=== PATIENT | male | born 1960 | race Caucasian/White ===

== ENCOUNTER 2020-05-25 14:52 | Emergency (ER) | payer OTHER ==
[~2020-05-25] VITALS: Ht 180.3 cm; Wt 99.8 kg
[~2020-05-25 14:52] MED LIST: ATOR20; CIPR500 PO; Flonase 0.05% N16 GM; HYDACE5 PO; LOSHYD100; Naprosyn500 MG PO; Norco 5-325 Ta1 EACH PO; PROM25 PO
[2020-05-25] MEDS ORDERED: AMLODIPINE BESYL5 MG PO (16:53)
[2020-05-25] MEDS ORDERED: LOSA50 PO (16:54)
[2020-05-25] MEDS ORDERED: HYDCHL25 PO (16:54)
[2020-05-25] MEDS ORDERED: Pravachol40 MG PO (16:55)
[2020-05-25] MEDS ORDERED: CELE400 PO (18:02)
[2020-05-25] MEDS ORDERED: Norco 5-325 Ta1 EACH PO (18:02)
[2020-05-25] MEDS ORDERED: METPRE4DP PO (18:02)
== END 2020-05-25 18:33 | disposition home or self-care (01) ==
LOC: ER 14:52
DX: M54.16 Radiculopathy, lumbar region (principal); I10 Essential (primary) hypertension; Z79.899 Other long term (current) drug therapy
CPT/HCPCS: 72100; 99283-25

== ENCOUNTER → 2022-01-30 | Outpatient (CLI) | payer OTHER ==
[~2022-01-30] MED LIST changes: +AMLODIPINE BESYL5 MG PO; +BACTRIM DS TAB1 EAC1 PO; +CELE400 PO; +CEPH500 PO; +HYDCHL25 PO; +LOSA50 PO; +METPRE4DP PO; +Pravachol40 MG PO
[2022-01-30 07:43] LABS: BASOPHILS ABSOLUTE AUTO 0.04 K/mm3 (0.00-0.23); BASOPHILS PERCENT AUTO 0 % (0-2); EOSINOPHILS ABSOLUTE AUTO 0.24 K/mm3 (0.00-0.68); EOSINOPHILS PERCENT AUTO 2 % (0-6); Hematocrit 50.5 % (37.0-53.0); IMMATURE GRAN ABSOLUTE AUTO 0.04 K/mm3 (0.00-0.10); IMMATURE GRAN PERCENT AUTO 0 % (0-1); LYMPHOCYTES ABSOLUTE AUTO 1.82 K/mm3 (0.84-5.20); LYMPHOCYTES PERCENT AUTO 14 % (21-46); MONOCYTES ABSOLUTE AUTO 1.09 K/mm3 (0.16-1.47); MONOCYTES PERCENT AUTO 8 % (4-13); Mean Corpuscular HGB 31.7 pg (26.0-34.0); Mean Corpuscular HGB Conc 33.7 g/dL (31.5-36.5); Mean Corpuscular Volume 94 fL (80-100); Mean Platelet Volume 10.8 fL (9.1-12.4); NEUTROPHILS ABSOLUTE AUTO 9.96 K/mm3 (1.96-9.15); NEUTROPHILS PERCENT AUTO 76 % (41-73); Platelet Count 205 K/mm3 (150-400); RDW Coefficient Variation 13.2 % (11.7-14.2); RDW Standard Deviation 45.3 fL (35.1-46.3); Red Blood Cell Count 5.37 M/mm3 (4.30-5.90); White Blood Cell Count 13.19 K/mm3 (4.00-11.30)
[2022-01-30 08:40] LABS: Anion Gap 8 mmol/L (6-16); Blood Urea Nitrogen 18 mg/dL (8-24); Bun/Creatinine Ratio 15.4 (12.0-20.0); CO2, Blood 30 mmol/L (21-32); Calcium, Blood 9.2 mg/dL (8.5-10.1); Chloride, Blood 103 mmol/L (98-108); Creatinine, Blood 1.17 mg/dL (0.60-1.20); Glomerular Filtration Rate >60 (60-); Glucose, Blood 116 mg/dL (70-99); Potassium, Blood 4.1 mmol/L (3.5-5.5); Sodium, Blood 141 mmol/L (136-145); Uric Acid, Blood 5.4 mg/dL (3.5-7.2)
== END | disposition home or self-care (01) ==
LOC: LAB SHORT 07:38 → LAB 07:38
PROVIDERS: Chiropractor
DX: M70.41 Prepatellar bursitis, right knee (principal)
CPT/HCPCS: 80048; 84550; 85025

== ENCOUNTER 2022-02-02 06:53 | Inpatient (IN) | payer OTHER ==
[~2022-02-02] VITALS: Ht 180.3 cm; Wt 99.0 kg
[~2022-02-02 06:53] MED LIST changes: -BACTRIM DS TAB1 EAC1 PO; -CEPH500 PO
[2022-02-02] MEDS ORDERED: AMLODIPINE BESYL5 MG PO (07:11)
[2022-02-02 09:47] LABS: BASOPHILS ABSOLUTE AUTO 0.03 K/mm3 (0.00-0.23); BASOPHILS PERCENT AUTO 0 % (0-2); EOSINOPHILS ABSOLUTE AUTO 0.21 K/mm3 (0.00-0.68); EOSINOPHILS PERCENT AUTO 2 % (0-6); Hematocrit 52.2 % (37.0-53.0); Hemoglobin 17.9 g/dL (13.5-17.5); IMMATURE GRAN ABSOLUTE AUTO 0.02 K/mm3 (0.00-0.10); IMMATURE GRAN PERCENT AUTO 0 % (0-1); LYMPHOCYTES PERCENT AUTO 12 % (21-46); MONOCYTES ABSOLUTE AUTO 1.09 K/mm3 (0.16-1.47); MONOCYTES PERCENT AUTO 10 % (4-13); Mean Corpuscular HGB 31.5 pg (26.0-34.0); Mean Corpuscular HGB Conc 34.3 g/dL (31.5-36.5); Mean Corpuscular Volume 92 fL (80-100); NEUTROPHILS ABSOLUTE AUTO 8.25 K/mm3 (1.96-9.15); NEUTROPHILS PERCENT AUTO 76 % (41-73); Platelet Count 257 K/mm3 (150-400); RDW Coefficient Variation 12.6 % (11.7-14.2); RDW Standard Deviation 42.7 fL (35.1-46.3); Red Blood Cell Count 5.68 M/mm3 (4.30-5.90)
[2022-02-02 10:11] LABS: Alanine Aminotransfer (ALT/SGP 45 U/L (12-78); Albumin, Blood 3.7 g/dL (3.4-5.0); Albumin/Globulin Ratio 0.8 (0.8-1.8); Alk Phos 93 U/L (50-136); Anion Gap 7 mmol/L (6-16); Aspartate Aminotrans (AST/SGOT 29 U/L (12-37); Blood Urea Nitrogen 23 mg/dL (8-24); Bun/Creatinine Ratio 19.2 (12.0-20.0); CO2, Blood 27 mmol/L (21-32); Calcium, Blood 9.3 mg/dL (8.5-10.1); Chloride, Blood 102 mmol/L (98-108); Globulin, Blood 4.6 g/dL (2.2-4.0); Glomerular Filtration Rate >60 (60-); Glucose, Blood 98 mg/dL (70-99); Potassium, Blood 3.8 mmol/L (3.5-5.5); Sodium, Blood 136 mmol/L (136-145); Total Protein, Blood 8.3 g/dL (6.4-8.2)
[2022-02-02] MEDS ORDERED: CEPH500 PO (14:49)
[2022-02-02] MEDS ORDERED: BACTRIM DS TAB1 EAC1 PO (14:50)
--- NOTE | 2022-02-02 17:26 | NUR ---
PT ADMITTED FOR SEPTIC KNEE AT 1400. Pt AOx4, ambulates independently, supervision for safety. Right knee, red/warm to the touch, fluid aspirated in the ER. Ortho Surgeon assessed pt at bedside, the plan is for a procedure tomorrow to washout knee, orders for NPO at midnight, NS IV 125ml/hr. Vitals stable, PRN dilaudid given for pain.
--- NOTE | 2022-02-03 00:31 | NUR ---
NPO FOR AM PROCEDURE PER MD ORDERS. IVF INFUSING. COVID SWAB DONE AND SENT TO LAB FOR PROCESSING. CALL LIGHT IN REACH.
[2022-02-03 01:14] LABS: Influenza A, PCR NEGATIVE (NEGATIVE); Influenza B, PCR NEGATIVE (NEGATIVE); Resp Syncytial Virus, PCR NEGATIVE (NEGATIVE)
[2022-02-03 01:17] LABS: SARS-Cov-2 (COVID-19) PCR, MMC POSITIVE (NEGATIVE)
--- NOTE | 2022-02-03 01:25 | NUR ---
LAB CALLED RESULTS OF COVID TEST - POSITIVE. PLACED ON DROPLET PRECAUTIONS PER PROTOCOL. CHARGE NURSE NOTIFIED
--- NOTE | 2022-02-03 03:11 | NUR ---
RECEIVING WORKER SUMMARY WAS ADMITTED TO FLOOR YESTERDAY WITH RIGHT KNEE SWELLING AND PAIN. X RAY OF AREA SUGGESTED POSSIBLE CELLULITIS. STARTED ON ANTIBIOTICS AND SCHEDULED FOR PROCEDURE LATER TODAY. NPO SINCE MIDNIGHT. PRE PROCEDURE COVID TEST DONE AND CAME BACK POSITIVE. PLACED ON PRECAUTIONS. CURRENTLY RESTING QUIETLY WITH CALL LIGHT IN REACH.
[2022-02-03 04:36] LABS: BASOPHILS ABSOLUTE AUTO 0.03 K/mm3 (0.00-0.23); BASOPHILS PERCENT AUTO 0 % (0-2); EOSINOPHILS ABSOLUTE AUTO 0.33 K/mm3 (0.00-0.68); EOSINOPHILS PERCENT AUTO 3 % (0-6); Hematocrit 47.5 % (37.0-53.0); Hemoglobin 16.2 g/dL (13.5-17.5); IMMATURE GRAN ABSOLUTE AUTO 0.05 K/mm3 (0.00-0.10); IMMATURE GRAN PERCENT AUTO 1 % (0-1); LYMPHOCYTES ABSOLUTE AUTO 1.64 K/mm3 (0.84-5.20); LYMPHOCYTES PERCENT AUTO 17 % (21-46); MONOCYTES ABSOLUTE AUTO 1.12 K/mm3 (0.16-1.47); MONOCYTES PERCENT AUTO 12 % (4-13); Mean Corpuscular HGB 31.3 pg (26.0-34.0); Mean Corpuscular HGB Conc 34.1 g/dL (31.5-36.5); Mean Corpuscular Volume 92 fL (80-100); Mean Platelet Volume 11.2 fL (9.1-12.4); NEUTROPHILS ABSOLUTE AUTO 6.61 K/mm3 (1.96-9.15); NEUTROPHILS PERCENT AUTO 68 % (41-73); Platelet Count 265 K/mm3 (150-400); RDW Coefficient Variation 12.6 % (11.7-14.2); Red Blood Cell Count 5.17 M/mm3 (4.30-5.90); White Blood Cell Count 9.78 K/mm3 (4.00-11.30)
[2022-02-03 05:03] LABS: Anion Gap 4 mmol/L (6-16); Blood Urea Nitrogen 21 mg/dL (8-24); Bun/Creatinine Ratio 17.9 (12.0-20.0); CO2, Blood 29 mmol/L (21-32); Calcium, Blood 9.1 mg/dL (8.5-10.1); Chloride, Blood 102 mmol/L (98-108); Creatinine, Blood 1.17 mg/dL (0.60-1.20); Glomerular Filtration Rate >60 (60-); Glucose, Blood 105 mg/dL (70-99); Potassium, Blood 3.9 mmol/L (3.5-5.5); Sodium, Blood 135 mmol/L (136-145)
--- NOTE | 2022-02-03 09:24 | NUR ---
02/03/22 0924 Deshawn Cosme PT ON SCHEDULED ABX
--- NOTE | 2022-02-03 17:01 | NUR ---
END OF SHIFT SUMMARY Pt NPO, AM meds given, Lovenox IM held d/t procedure. Pt left at 830 for procedure & returned 1030. Pt reports severe pain in right knee, dilaudid & hydrocodone given PRN, ineffective. ordered extra dose of dilaudid. Finally pain managed. TD drain has moderate bloody output, stripped tube. Right LE elevated, leg immobolizer in place. Vitals stable. Continuing IV ABX. Surgeon assessed pt, plan of care: awaiting wound culture results to determine ABX course, pt will have TD removed & DC'd home with PO ABX.
--- NOTE | 2022-02-03 17:48 | NUR ---
TD bulb had scant amount of drainage, & bulb filled w/ air. Emptied 15mL of bloody output, and compressed TD bulb, soon after bulb filled with air. Stripped tube, and tried to compress bulb several times. Bulb will not stay compressed & fills with air. Called MD Russo & left voicemail r/t TD bulb issue, at 1730.
--- NOTE | 2022-02-03 18:17 | NUR ---
MD Nelson returned call & instructed RN to recheck Qhourly, to compress bulb. stated that they way was he placed the TD drain, it can drain to gravity w/out suction. Only 15mL bloody output this shift, will pass along to noc nurse & continue to monitor TD bulb & amt of drainage.
[2022-02-04 00:16] LABS: BASOPHILS ABSOLUTE AUTO 0.01 K/mm3 (0.00-0.23); BASOPHILS PERCENT AUTO 0 % (0-2); EOSINOPHILS PERCENT AUTO 0 % (0-6); Hematocrit 47.3 % (37.0-53.0); Hemoglobin 16.4 g/dL (13.5-17.5); IMMATURE GRAN ABSOLUTE AUTO 0.05 K/mm3 (0.00-0.10); IMMATURE GRAN PERCENT AUTO 0 % (0-1); LYMPHOCYTES ABSOLUTE AUTO 0.99 K/mm3 (0.84-5.20); LYMPHOCYTES PERCENT AUTO 9 % (21-46); MONOCYTES ABSOLUTE AUTO 0.78 K/mm3 (0.16-1.47); MONOCYTES PERCENT AUTO 7 % (4-13); Mean Corpuscular HGB 31.5 pg (26.0-34.0); Mean Corpuscular HGB Conc 34.7 g/dL (31.5-36.5); Mean Corpuscular Volume 91 fL (80-100); Mean Platelet Volume 10.6 fL (9.1-12.4); NEUTROPHILS ABSOLUTE AUTO 9.38 K/mm3 (1.96-9.15); NEUTROPHILS PERCENT AUTO 84 % (41-73); Platelet Count 309 K/mm3 (150-400); RDW Coefficient Variation 12.2 % (11.7-14.2); RDW Standard Deviation 40.7 fL (35.1-46.3); White Blood Cell Count 11.21 K/mm3 (4.00-11.30)
[2022-02-04 00:34] LABS: Anion Gap 6 mmol/L (6-16); Blood Urea Nitrogen 23 mg/dL (8-24); CO2, Blood 27 mmol/L (21-32); Calcium, Blood 8.9 mg/dL (8.5-10.1); Chloride, Blood 101 mmol/L (98-108); Glomerular Filtration Rate >60 (60-); Glucose, Blood 134 mg/dL (70-99); Potassium, Blood 4.4 mmol/L (3.5-5.5); Sodium, Blood 134 mmol/L (136-145); Vancomycin, Trough 8.4 ug/mL (5.0-10.0)
--- NOTE | 2022-02-04 04:06 | NUR ---
PACS ADMINISTRATOR SUMMARY PT IN BED THROUGH THE NIGHT. RT LEG ELEVTED W/IMMOBILIZER. SCANT BLOODY DRAINAGE IN THE TD DRAIN. DRAIN NOT STAYING COMPRESSED. PT IS USING BEDSIDE URINAL. DISCUSSED ORDERS FOR TOE TOUCH WT BEARING ON RT LEG AND BROUGT WALKER TO HIS ROOM. CONTINUE IV ABX. MANAGED PAIN W/IV DILAUDID P/MAR AND PT REQUEST. CALL LIGHT IN REACH.
--- NOTE | 2022-02-04 18:54 | NUR ---
SHIFT SUMMARY PT A&OX4. 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 R KNEE WITH LEG IMMOBILIZER & TD DRAIN, DRAINING MINIMAL AMOUNTS SERSANGUINOUS DRAINAGE. PT INDEPENDANT WITH URINAL.
--- NOTE | 2022-02-05 04:20 | NUR ---
LOG HAULER SUMMARY ADMITTED FOR SEPTIC PREPATELLAR BURSITIS OF THE RIGHT KNEE. HE IS A FULL CODE. PT CONTINUES TO WEAR KNEE IMMOBILIZER TO RIGHT KNEE. TD DRAIN PATENT WITH SEROSANGUINOUS DRAINAGE. DRESSING C/D/I. PT MEDICATED FOR PAIN X2 LAST NIGHT WITH IMPROVEMENT. HE IS ALERT AND ORIENTED X4. INDEPENDENT USE OF THE URINAL.
[2022-02-05 05:37] LABS: BASOPHILS ABSOLUTE AUTO 0.04 K/mm3 (0.00-0.23); BASOPHILS PERCENT AUTO 0 % (0-2); EOSINOPHILS ABSOLUTE AUTO 0.26 K/mm3 (0.00-0.68); EOSINOPHILS PERCENT AUTO 2 % (0-6); Hemoglobin 16.3 g/dL (13.5-17.5); IMMATURE GRAN ABSOLUTE AUTO 0.03 K/mm3 (0.00-0.10); IMMATURE GRAN PERCENT AUTO 0 % (0-1); LYMPHOCYTES ABSOLUTE AUTO 3.21 K/mm3 (0.84-5.20); LYMPHOCYTES PERCENT AUTO 29 % (21-46); MONOCYTES ABSOLUTE AUTO 1.14 K/mm3 (0.16-1.47); MONOCYTES PERCENT AUTO 10 % (4-13); Mean Corpuscular HGB 31.3 pg (26.0-34.0); Mean Corpuscular Volume 92 fL (80-100); Mean Platelet Volume 10.9 fL (9.1-12.4); NEUTROPHILS ABSOLUTE AUTO 6.28 K/mm3 (1.96-9.15); NEUTROPHILS PERCENT AUTO 57 % (41-73); Platelet Count 297 K/mm3 (150-400); RDW Coefficient Variation 12.6 % (11.7-14.2); RDW Standard Deviation 42.8 fL (35.1-46.3); Red Blood Cell Count 5.21 M/mm3 (4.30-5.90); White Blood Cell Count 10.96 K/mm3 (4.00-11.30)
[2022-02-05] MEDS ORDERED: VISBIOME 112.51 EACH PO (12:52)
--- NOTE | 2022-02-05 17:00 | NUR ---
DC SUMMARY PT DC THIS AFTERNOON TO HOME WITH SIG OTHER. PT GIVEN PAIN MEDS x2 DURING THIS SHIFT WITH REPORTED RELIEF. PATIENT GIVEN DC INSTRUCTIONS, INCLUDING FOLLOW UP APPTS, DC MED LIST AND POST OP ACTIVITY RESTRICTION/WOUND CARE. PT AND SIGNIFICANT OTHER VERBALIZE UNDERSTANDING. PT DENIES ANY NEEDS AT THIS TIME. SAFELY ESCORTED OUT VIA WC BY CHANNELER INSOLE.
== END 2022-02-05 16:09 | disposition home or self-care (01) | DRG 500 ==
LOC: ER 06:53 → MEDS 13:02
PROVIDERS: Orthopaedic Surgery; Physician Assistant; ADMIT Internal Medicine
PROC: 8E0ZXY6 Isolation (ICD-10-PCS; 2022-02-02)
PROC: 3E03329 Introduction of Other Anti-infective into Peripheral Vein, Percutaneous Approach (ICD-10-PCS; 2022-02-02)
PROC: 0MBN0ZZ Excision of Right Knee Bursa and Ligament, Open Approach (ICD-10-PCS; principal; 2022-02-03 08:00)
DX: M71.161 Other infective bursitis, right knee (principal); U07.1 COVID-19; I10 Essential (primary) hypertension; E66.9 Obesity, unspecified; Z98.890 Other specified postprocedural states; Z79.899 Other long term (current) drug therapy; B95.62 Methicillin resistant Staphylococcus aureus infection as the cause of diseases classified elsewhere; Z68.32 Body mass index [BMI] 32.0-32.9, adult
CPT/HCPCS: 0241U; 36415; 73562-RT; 73701; 80048; 80053; 80202; 85025; 85651; 86140; 87070; 87075; 87077; 87147; 87186; 87205; 96365; 96375; 97116; 97162; 99285-25; A9270; J0690; J1100; J1170; J1650; J1885; J2250; J2405; J2543; J2704; J3010; J3370; J7030; J7060; Q9967